=== PATIENT | male | born 1995 ===

== ENCOUNTER 2018-09-25 14:09 | Emergency (ER) | payer SELFPAY ==
[2018-09-25] MEDS ORDERED: IBUPROFEN 600 MG TABLET PO ONE (14:28)
--- NOTE | 2018-09-25 14:31 | Emergency Department Record ---
History of Present Illness - General Chief complaint: Pain Stated complaint: RT SHOULDER INJURY Time Seen by Provider: 09/25/18 14:25 Source: Patient Mode of Arrival: Ambulatory Limitations: No limitations - History of Present Illness Initial comments: The patient is here due to worsening R shoulder pain. He states he was injured 3 days ago at work when he was lifting a 5th wheel hitch and felt pain in the R shoulder. Since the pain has been getting progressively worse. Now it is hurting any time he raises the R shoulder over his head. There was no direct trauma or injury. MD Complaint: Joint pain Onset/Timin -: Days(s) Location: Left, Right, Shoulder Severity scale (1-10): 6 Quality: Aching Consistency: Constant, Intermittent Improves with: Rest Worsens with: Exertion - Related Data Home Medications Medication Instructions Recorded Confirmed Last Taken No Home Med [NO HOME MEDS] 09/25/18 09/25/18 Unknown Allergies Allergy/AdvReac Type Severity Reaction Status Date / Time amoxicillin Allergy RASH Verified 09/25/18 15:13 Travel Screening - Travel/Exposure Within Last 30 Days Have you traveled within the last 30 days?: No - Travel/Exposure Within Last Year Have you traveled outside the [place] in the last year?: No - Additonal Travel Details Have you been exposed to anyone with a communicable illness?: No - Travel Symptoms Symptom Screening: None Review of Systems Constitutional: Denies: Chills, Fever Eyes: Denies: Eye discharge ENT: Denies: Congestion Respiratory: Denies: Cough, Dyspnea Past Medical History - SOCIAL HISTORY Smoking Status: Never smoker Alcohol Use: Occasional Drug Use: Rare, Occasional Drug Use Detail:: Marijuana - RESPIRATORY Hx Respiratory Disorders: No - CARDIOVASCULAR Hx Cardio Disorders: No - NEURO Hx Neuro Disorders: No - GI Hx GI Disorders: No - Hx Genitourinary Disorders: No - ENDOCRINE Hx Endocrine Disorders: No - MUSCULOSKELETAL Hx Musculoskeletal Disorders: No - PSYCH Hx Psych Problems: No - HEMATOLOGY/ONCOLOGY Hx Hematology/Oncology Disorders: No Family Medical History Any Significant Family History?: Yes Physical Exam - General General Appearance: Alert, Oriented x3, Cooperative, No acute distress - Head Head exam: Atraumatic, Normocephalic - Eye Eye exam: Normal appearance - Extremities Extremities exam: Normal inspection, Full ROM, Normal capillary refill, Tenderness (There is mild tenderness near the R anterior shoulder inferior to the AC joint. The patient has normal ROM but with pain with abduction > 90 degrees.), Other (The R arm is NVI with normal sensation, motor function and pulses.). negative: Joint swelling, Pedal edema Course Vital Signs 09/25/18 14:16 Temperature 98.1 F Pulse Rate 71 Respiratory 18 Rate Blood Pressure 140/97 Pulse Ox 98 - Reevaluation(s) Reevaluation #1: The patient is doing well at this time. I did discuss the need to keep the R shoulder in the arm sling for a week and to not use it at work. He is to see an Occupational Health provider at the end of the week for recheck. 09/25/18 15:08 Medical Decision Making - Data Complexity MDM Data: X-Ray Ordered and/or Reviewed - Radiology Data Radiology results: Report reviewed (R shoulder: Neg.) Disposition Disposition: Discharge Clinical Impression: Right shoulder strain Qualifiers: Encounter type: initial encounter Qualified Code(s): S46.911A - Strain of unspecified muscle, fascia and tendon at shoulder and upper arm level, right arm, initial encounter Disposition: Home, Self-Care Condition: (2) Stable Instructions: Shoulder Sprain (ED) Additional Instructions: Please take an OTC pain medicine and ice the shoulder when possible. Wear the R arm sling for a week and do not use the arm at work. Please see your Occupational Health Provider for recheck at the end of this week. Forms: Patient Portal Access Time of Disposition: 15:10 Quality - Quality Measures Quality Measures: N/A - Blood Pressure Screening View Details: Yes Does Patient Have Any of the Following: No Blood Pressure Classification: Hypertensive Reading Systolic Measurement: 140 Diastolic Measurement: 97 Screening for High Blood Pressure: < First Hypertensive BP, F/U Documented > [[id number]] First Hypertensive Follow-up Interventions: Referral to alternative/primary care provider.
--- NOTE | 2018-09-28 10:37 | RADIOLOGY REPORT ---
STUDY: Right shoulder. CLINICAL HISTORY: Right shoulder pain after lifting. TECHNIQUE: Three views of the right shoulder were obtained. COMPARISON: None. FINDINGS: The bones appear intact. There is no acute fracture, dislocation, or destructive process. An incidental bone island is present within the humeral head. The AC joint and subacromial space are maintained. IMPRESSION: Negative right shoulder. MTDD
== END 2018-09-25 15:18 | disposition home or self-care (01) ==
LOC: ER 14:09
DX: S46.911A Strain of unspecified muscle, fascia and tendon at shoulder and upper arm level, right arm, initial encounter (principal); X50.0XXA Overexertion from strenuous movement or load, initial encounter; Y99.0 Civilian activity done for income or pay
CPT/HCPCS: 99283